=== PATIENT | male | born 1980 | race Hispanic/Latino ===

== ENCOUNTER 2024-01-06 15:17 | Emergency (ER) | payer SELFPAY ==
[2024-01-06] MEDS ORDERED: predniSONE 20 MG TAB ONE (15:48)
[2024-01-06] MEDS ORDERED: Famotidine 20 MG TAB ONE (15:48)
[2024-01-06] MEDS ORDERED: methylPREDNISolone Sod Succ/PF 125 MG/2 ML VIAL ONE (16:34)
== END 2024-01-06 17:50 | disposition home or self-care (01) ==
LOC: ERS 15:17
DX: T78.40XA Allergy, unspecified, initial encounter (principal)
CPT/HCPCS: 96374; J2919; J7512